=== PATIENT | female | born 1975 | race Hispanic/Latino ===

== ENCOUNTER 2022-01-07 20:14 | Emergency (ER) | payer OTHER ==
[~2022-01-07] VITALS: Ht 152.4 cm; Wt 98.0 kg
[2022-01-07] MEDS ORDERED: SOLU-MEDROL 125MG VIAL ONE (20:54)
[2022-01-07] MEDS ORDERED: DiphenhydrAMINE HCL 50 MG/ML VIAL ONE (20:54)
[2022-01-07] MEDS ORDERED: DiphenhydrAMINE HCL 50 MG/ML VIAL IV ONE (21:00)
[2022-01-07] MEDS ORDERED: SOLU-MEDROL 40MG VIAL IVP ONE (21:00)
[2022-01-07] MEDS ORDERED: FAMOTIDINE 20MG VIAL IV ONE (21:00)
[2022-01-07] MEDS ORDERED: PRED20TA3 PO (22:39)
[2022-01-07 22:47] VITALS: BP 123/76
== END 2022-01-07 22:54 | disposition home or self-care (01) ==
LOC: EDH 20:14
DX: T78.40XA Allergy, unspecified, initial encounter (principal); E10.9 Type 1 diabetes mellitus without complications; Z90.89 Acquired absence of other organs; X58.XXXA Exposure to other specified factors, initial encounter
CPT/HCPCS: 36415; 81025; 82947; 82948; 96374; 96375; 99284; J1200; J2930; J3490